=== PATIENT | male | born 1940 | race Caucasian/White ===

== ENCOUNTER 2020-10-28 13:06 | Outpatient (CLI) | payer MEDICARE, OTHER ==
[2020-10-29 11:37] LABS: SARS-CoV-2 PCR by NAA Not Detected (NotDetected)
== END 2020-10-28 13:07 | disposition home or self-care (01) ==
LOC: LABBT 13:06
PROVIDERS: ATTEND Family Medicine
DX: Z01.812 Encounter for preprocedural laboratory examination (principal); Z20.822 Contact with and (suspected) exposure to COVID-19
CPT/HCPCS: U0003; U0005; 87635

== ENCOUNTER 2020-11-02 07:20 | Day surgery (SDC) | payer MEDICARE, OTHER ==
[2020-11-01 11:31] VITALS: BMI 27.1
[~2020-11-02 07:20] MED LIST: EPINEPHrine 0.3 MG in Ophthalmic Irrigation Solution 500 ML IRR SCH; Fentanyl 100 MCG/2 ML VIAL ONE; Midazolam HCl 2 mg/2 ml Vial ONE
[2020-11-02] MEDS ORDERED: Phenylephrine 2.5% Ophth Soln 5 ML BOT ONE (07:44)
[2020-11-02] MEDS ORDERED: Cyclopentolate 1% Ophth Drops 15 ML BOT ONE (07:44)
[2020-11-02] MEDS ORDERED: CEFAZOLIN 1 GM VIAL ONE (08:35)
[2020-11-02] MEDS ORDERED: Lidocaine 4% PF 5 ML AMP ONE (08:35)
[2020-11-02] MEDS ORDERED: Maxitrol 0.1% Opth Oint 3.5 GM TUBE ONE (08:35)
[2020-11-02] MEDS ORDERED: Lidocaine 1% PF 5 ML VIAL ONE (08:35)
[2020-11-02] MEDS ORDERED: Triamcinolone 40 MG/ML VIAL ONE (08:35)
[2020-11-02] MEDS ORDERED: Indocyanine Green 25 MG/10 ML VIAL ONE (08:35)
[2020-11-02] MEDS ORDERED: Bupivacaine PF 0.75% SDV 10 ML ONE (08:35)
[2020-11-02] MEDS ORDERED: PROPOFOL 200 MG/20 ML VIAL ONE (08:35)
== END 2020-11-02 10:15 | disposition home or self-care (01) ==
LOC: SDC 07:20
PROVIDERS: ATTEND Ophthalmology Retina Specialist
PROC: 08T53ZZ Resection of Left Vitreous, Percutaneous Approach (ICD-10-PCS; principal; 2020-11-02)
PROC: 08NF3ZZ Release Left Retina, Percutaneous Approach (ICD-10-PCS; 2020-11-02)
DX: H35.372 Puckering of macula, left eye (principal); I10 Essential (primary) hypertension; E78.5 Hyperlipidemia, unspecified; G47.30 Sleep apnea, unspecified; E03.9 Hypothyroidism, unspecified; N40.0 Benign prostatic hyperplasia without lower urinary tract symptoms; Z79.82 Long term (current) use of aspirin; Z79.899 Other long term (current) drug therapy
CPT/HCPCS: J0171; J0690; J2250; J2704; J3010; J3301; J3490